=== PATIENT | female | born 1970 | race American Indian/Alaskan Native ===

== ENCOUNTER 2016-08-27 10:30 | Emergency (ER) | payer SELFPAY ==
--- NOTE | 2016-08-27 11:16 | Emergency Department Report ---
HPI - General Chief Complaint: Extremity Problem,Nontraumatic Time Seen by Provider: 08/27/16 10:39 - HPI HPI: This is a 46-year-old Afro-Nigerian female presents to the emergency department from [facility] with complaint of swelling to the left hand and forearm, as well as pain to the left upper arm and left leg. The patient went to [facility] yesterday for the leg pain that she says was "spasms." During that time she admitted to some suicidal ideations and ended up as a 1013 and sent to [facility], but the patient says that did not evaluate her leg pain at that time. She had an IV in her left hand and she says that it infiltrated and since that time she has been having swelling in the hand that worsened this morning and moved to the forearm. She has a history of recent plant dermatitis to her arms. She otherwise has a past medical history of COPD , peripheral vascular disease of the lower extremities and hypertension. She does not currently have a primary care physician. No recent travel or sick contacts at home. She did not take anything and was not given anything for her symptoms prior to presentation. ED Past Medical Hx - Past Medical History Previous Medical History?: Yes Hx Hypertension: Yes Hx Psychiatric Treatment: Yes (Depression) Hx COPD: Yes Additional medical history: emphasema. vascular disease - Surgical History Past Surgical History?: Yes Additional Surgical History: Left great toe partial amputation. - Social History Smoking Status: Current Every Day Smoker Substance Use Type: Alcohol - Medications Home Medications: Home Medications Medication Instructions Recorded Confirmed Last Taken Type Apixaban [Eliquis] 5 mg PO BID #70 tablet 08/27/16 Unknown Rx Multivitamin Tab [Multiple Vitamin 1 each PO QDAY 08/27/16 08/27/16 08/26/16 History TAB (Theragran)] clonazePAM [ Klonopin] 0.5 mg PO BID PRN 08/27/16 08/27/16 08/26/16 History traZODone [Desyrel] 50 mg PO QHS 08/27/16 08/27/16 08/26/16 History ED Review of Systems ROS: Stated complaint: L ARM PAIN/SWELLING Other details as noted in HPI Comment: All other systems reviewed and negative Constitutional: denies: chills, fever Eyes: denies: eye pain, eye discharge, vision change ENT: denies: ear pain, throat pain Respiratory: denies: cough, shortness of breath, wheezing Cardiovascular: edema. denies: chest pain, palpitations Gastrointestinal: denies: abdominal pain, nausea, diarrhea Genitourinary: denies: urgency, dysuria, discharge Musculoskeletal: joint swelling, arthralgia. denies: back pain Skin: denies: change in color, pruritus Neurological: denies: headache, weakness, paresthesias Physical Exam - Physical Exam Vital Signs: Vital Signs 08/27/16 08/27/16 10:40 10:45 Temperature 99 F Pulse Rate 96 H Respiratory 18 18 Rate Blood Pressure 111/78 O2 Sat by Pulse 100 100 Oximetry Physical Exam: GENERAL: The patient is well-developed well-nourished. HEENT: Normocephalic. Atraumatic. Extraocular motions are intact. Patient has moist mucous membranes. Pupils equal reactive to light bilaterally. NECK: Supple. Trachea is midline. CHEST/LUNGS: Clear to auscultation. There is no respiratory distress noted. HEART/CARDIOVASCULAR: Regular. There is no tachycardia. There is no gallop rub or murmur. ABDOMEN: Abdomen is soft, nontender. Patient has normal bowel sounds. There is no abdominal distention. SKIN: There are still the remnants of some plant dermatitis to the bilateral upper extremities. There is nonpitting swelling of the left hand and distal forearm but no erythema or warmth. NEURO: The patient is awake, alert, and oriented. The patient is cooperative. The patient has no focal neurologic deficits. The patient has normal speech. MUSCULOSKELETAL: Unable to reproduce the patient's left leg pain or left upper extremity pain to palpation. No obvious deformity other than some nonpitting swelling of the proximal left upper extremity. Muscle strength 5 out of 5 for upper and lower extremities bilaterally. Radial pulse +2 over 4 bilaterally. Cap refill less than 2 seconds. ED Course Vital Signs 08/27/16 08/27/16 10:40 10:45 Temperature 99 F Pulse Rate 96 H Respiratory 18 18 Rate Blood Pressure 111/78 O2 Sat by Pulse 100 100 Oximetry ED Medical Decision Making - Lab Data Result diagrams: 08/27/16 11:06 08/27/16 11:06 - EKG Data -: EKG Interpreted by Pr EKG shows normal: sinus rhythm, axis, intervals, QRS complexes (LVH), ST-T waves Rate: normal - EKG Data When compared to previous EKG there are: previous EKG unavailable Interpretation: LVH - Radiology Data Radiology results: report reviewed Left lower extremity venous Doppler negative for DVT. Left upper extremity venous Doppler positive for one left brachial vein thrombosis. - Medical Decision Making 46-year-old female presents to the emergency department from [facility] with complaints of left upper and lower extremity discomfort as well as some left hand and forearm swelling. At first, the patient's history may be think that the swelling could be secondary to a infiltrated IV that she had in her left hand yesterday when she visited a different hospital. However with the pain being in the upper arm, away from the swelling, along with pain in the left lower extremity, she had venous Dopplers done of both the left upper and lower extremities. The left upper extremity was positive for 1 brachial vein DVT. The rest of the patient's labs are mostly unremarkable. However the patient has no insurance and is currently headache or hospital. Since I have concern for the possibility of embolism and probability of noncompliance, the patient will be presented to the hospitalist for either admission or consultation. - Differential Diagnosis DVT, Cellulitis, CAD, PVD Critical Care Time: No Critical care attestation.: If time is entered above; I have spent that time in minutes in the direct care of this critically ill patient, excluding procedure time. ED Disposition Clinical Impression: Left arm pain, Left leg pain Deep vein thrombosis (DVT) of brachial vein of left upper extremity Qualifiers: Chronicity: acute Qualified Code(s): I82.622 - Acute embolism and thrombosis of deep veins of left upper extremity Disposition: - OP ADMIT IP TO THIS HOSP Is pt being admited?: Yes Condition: Stable Prescriptions: Apixaban [Eliquis] 5 mg PO BID #70 tablet Referrals: PRIMARY CARE, [Primary Care Provider] - 3-5 Days
[2016-08-27 11:18] LABS: Basophils % (Auto) 0.2 % (0.0-1.8); Eosinophils % (Auto) 0.2 % (0.0-4.3); Hematocrit 37.7 % (30.3-42.9); Hemoglobin 12.4 gm/dl (10.1-14.3); Mean Corpuscular HGB Conc 33 % (30-34); Mean Corpuscular Hemoglobin 31 pg (28-32); Mean Corpuscular Volume 96 fl (79-97); Platelet Count 248 K/mm3 (140-440); Red Blood Count 3.94 M/mm3 (3.65-5.03); Red Cell Distribution Width 14.7 % (13.2-15.2)
[2016-08-27 11:45] LABS: Anion Gap 14 mmol/L; Blood Urea Nitrogen 12 mg/dL (7-17); Calcium 8.9 mg/dL (8.4-10.2); Carbon Dioxide 29 mmol/L (22-30); Chloride 97.9 mmol/L (98-107); Glucose 85 mg/dL (65-100); Potassium 4.2 mmol/L (3.6-5.0); Sodium 137 mmol/L (137-145)
[2016-08-27 11:59] LABS: Creatine Kinase 29 units/L (30-135)
--- NOTE | 2016-08-27 12:16 | Admit Criteria Form ---
Admission Criteria Documentation: DEEP VENOUS THROMBOSIS OF LOWER EXTREMITIES Clinical Indications for Admission to Inpatient Care ( Place 'X' for any and all applicable criteria): Admission is indicated for ANY ONE of the following (1)(2)(3)(4): [ ]I. Documented extensive thrombosis (e.g., clot in vena cava or above iliofemoral bifurcation) [ ]II. Limb-threatening thrombosis (e.g., phlegmasia cerulea dolens) [ ]III. Active bleeding [ ]IV. Recent surgery (e.g., within 6 weeks) [ ]V. Active peptic ulcer disease [ ]. Thrombosis while on anticoagulation [ ]VII. [ X]VIII. Appropriate monitoring and therapy cannot be provided in home or outpatient setting [ ]IX. Thrombolysis (e.g., catheter-directed) or pharmaco mechanical thrombectomy needed (3) [ ]X. Vena cava filter placement planned (3) [ ]XI. Severely diminished cardiopulmonary reserve (e.g., pulmonary hypertension) [ ]XII. Severe renal failure (e.g., GFR less than 30 mL/min/1.73m2 (0.5 mL/sec /1.73m2)) [ ]XIII. Known clotting abnormality or deficiency (antithrombin III, protein C , or protein S) [ ]XIV. History of heparin-induced thrombocytopenia [ ]XV . Personal or family history of bleeding tendency or familial bleeding disorder that requires inpatient admission rather than observation care (Also use Deep Venous Thrombosis of Lower Extremities: Observation Care as appropriate) because of ANY ONE of the following: [ ]a) Significant allergic, autoimmune (thrombocytopenia), or coagulopathic reaction occurs in response to anticoagulation [ ]b) Other significant finding or clinical condition judged not to be within the scope of observation care Extended stay beyond goal length of stay may be needed for(1)(19): [ ]a) Hemorrhage or recent surgery(3) [ ]b) Inadequate oral anticoagulation [ ]c) Recurrent thromboembolism(3) [ ]d) Heparin-induced thrombocytopenia(14) The [facility] content created by [facility] has been revised. The portions of the content which have been revised are identified through the use of italic text or in bold, and [facility] has neither reviewed nor approved the modified material. All other unmodified content is copyright [facility]. Please see references footnoted in the original [facility] edition 2016 Admission Criteria Met: Yes
[2016-08-27 12:23] LABS: INR 0.81 (0.87-1.13)
[2016-08-27 12:24] LABS: Partial Thromboplastin Time 24.1 Sec. (24.2-36.6)
[2016-08-27] MEDS ORDERED: LOVENOX SUB-Q ONE (12:27)
[2016-08-27] MEDS ORDERED: ELIQUIS PO SCH (13:00)
--- NOTE | 2016-08-27 13:49 | History and Physical Report ---
History of Present Illness Chief complaint: My arm is swollen, History of present illness: 46 YO Female with HTN, Nicotine Dependence, Depression, COPD, Emphysema, PVD presents to ED for evaluation. Pt states that she has experienced swelling to the left hand and forearm, as well as pain to the left upper arm and left leg over the past 3 weeks, with worsening symptoms over the past 2 days. The patient went to [facility] yesterday for the leg pain that she says was "spasms." During that time she admitted to suicidal ideations and was made a code a 1013 and sent to [facility]. Pt seen and evaluated in ED. Pt denies fever, chills, CP, palpitations, NVD, Syncope, BRBPR, recent ill contacts. Past History Past Medical History: COPD, hypertension Past Surgical History: No surgical history, Other (reviewed) Social history: single, smoking. denies: alcohol abuse, prescription drug abuse , IV drug use Family history: hypertension Medications and Allergies Allergies Allergy/AdvReac Type Severity Reaction Status Date / Time lisinopril Allergy Angioedema Verified 08/27/16 10:40 Home Medications Medication Instructions Recorded Confirmed Last Taken Type Apixaban [Eliquis] 5 mg PO BID #70 tablet 08/27/16 Unknown Rx Multivitamin Tab [Multiple Vitamin 1 each PO QDAY 08/27/16 08/27/16 08/26/16 History TAB (Theragran)] clonazePAM [ Klonopin] 0.5 mg PO BID PRN 08/27/16 08/27/16 08/26/16 History traZODone [Desyrel] 50 mg PO QHS 08/27/16 08/27/16 08/26/16 History Active Meds: Active Medications Apixaban (Eliquis) 10 mg PO Q12HR KELLEY PRN Reason: Protocol Review of Systems All systems: negative Constitutional: other (My arm hurts) Exam - Constitutional Vitals: Temp Pulse Resp BP Pulse Ox 99 F 96 H 18 111/78 100 08/27/16 10:40 08/27/16 10:40 08/27/16 10:45 08/27/16 10:40 08/27/16 10:45 General appearance: Present: no acute distress, well-nourished - EENT Eyes: Present: PERRL ENT: hearing intact, clear oral mucosa - Neck Neck: Present: supple, normal ROM - Respiratory Respiratory effort: normal Respiratory: bilateral: CTA - Cardiovascular Heart Sounds: Present: S1 & S2. Absent: rub, click - Extremities Extremities: pulses symmetrical, No edema Peripheral Pulses: within normal limits - Abdominal General gastrointestinal: Present: soft, non-tender, non-distended, normal bowel sounds Female genitourinary: Present: normal - Integumentary Integumentary: Present: clear, warm, dry - Musculoskeletal Musculoskeletal: gait normal, strength equal bilaterally - Psychiatric Psychiatric: appropriate mood/affect, intact judgment & insight - Neurologic Neurologic: CNII-XII intact, moves all extremities Results - Labs CBC & Chem 7: 08/27/16 11:06 08/27/16 11:06 Labs: Abnormal lab results 08/27/16 08/27/16 08/27/16 Range/Units 11:06 11:06 11:06 Lymph % (Auto) 9.5 L (13.4-35.0) % Lymph # 0.7 L (1.2-5.4) K/mm3 Seg Neutrophils % 84.7 H (40.0-70.0) % PT (12.2-14.9) Sec. INR (0.87-1.13) APTT (24.2-36.6) Sec. Chloride 97.9 L (98-107) mmol/L Creatinine 0.6 L (0.7-1.2) mg/dL Total Creatine Kinase 29 L (30-135) units/L 08/27/16 Range/Units 12:00 Lymph % (Auto) (13.4-35.0) % Lymph # (1.2-5.4) K/mm3 Seg Neutrophils % (40.0-70.0) % PT 11.6 L (12.2-14.9) Sec. INR 0.81 L (0.87-1.13) APTT 24.1 L (24.2-36.6) Sec. Chloride (98-107) mmol/L Creatinine (0.7-1.2) mg/dL Total Creatine Kinase (30-135) units/L Assessment and Plan - Patient Problems (1) Deep vein thrombosis (DVT) of brachial vein of right upper extremity Current Visit: Yes Status: Acute Qualifiers: Chronicity: C Plan to address problem: Pt treated with Eliquis in ED, Pt discharged to [place] with eliquis therapy. Pt given coupan in ED. (2) HTN (hypertension) Current Visit: Yes Status: Acute Qualifiers: Hypertension type: H Plan to address problem: Monitor BP q shift, resume home medication. (3) Depression Current Visit: Yes Status: Acute Qualifiers: Depression Type: D Major depression recurrence: M Active/Remission status : A Major depression episode severity: M Psychotic features: P Trimester: T Plan to address problem: psych consulted, (4) Suicidal ideations Current Visit: Yes Status: Acute Plan to address problem: Psych consulted, (5) DVT prophylaxis Current Visit: Yes Status: Acute
[2016-08-27 14:17] VITALS: BP 123/79
--- NOTE | 2016-08-28 07:19 | Vascular Lab Report ---
Left Lower Extremity Venous Duplex Study: Reason for Exam: Pain of the left lower extremity. Comments on the Right: A limited duplex study was done of the proximal veins of the right lower extremity. All veins visualized are freely compressible without evidence of internal echogenicity. Flow is spontaneous and phasic throughout. No evidence of acute or chronic thrombus is seen in any of the vessels visualized. Comments on the Left: All veins visualized are freely compressible without evidence of internal echogenicity. Flow is spontaneous and phasic throughout. No evidence of acute or chronic thrombus is seen in any of the vessels visualized. Impression: No evidence of acute or chronic deep venous thrombosis in the left lower extremity.
--- NOTE | 2016-08-28 07:20 | Vascular Lab Report ---
LEFT UPPER EXTREMITY VENOUS DUPLEX: REASON FOR EXAM: Pain and swelling of the left upper extremity COMMENTS ON THE LEFT: Deep venous thrombus noted in the brachial vein. The remaining veins visualized are freely compressible without evidence of internal echogenicity. Spontaneous and phasic flow is present proximally. COMMENTS ON THE RIGHT: The subclavian and internal jugular veins are free of thrombus. IMPRESSION: Deep venous thrombosis in the left upper extremity
== END 2016-08-27 16:49 | disposition admitted as inpatient to this hospital (09) ==
LOC: ED 10:30
DX: I82.622 Acute embolism and thrombosis of deep veins of left upper extremity (principal); M79.605 Pain in left leg; I10 Essential (primary) hypertension; F32.9 Major depressive disorder, single episode, unspecified; J44.9 Chronic obstructive pulmonary disease, unspecified; F17.200 Nicotine dependence, unspecified, uncomplicated; J43.9 Emphysema, unspecified; Z88.8 Allergy status to other drugs, medicaments and biological substances
CPT/HCPCS: 36415; 80048; 82550; 84484; 85025; 85610; 85730; 93005; 93010

== ENCOUNTER 2016-08-28 22:07 | Inpatient (IN) | payer SELFPAY ==
[2016-08-28] MEDS ORDERED: NORCO 5/325 PO ONE (23:33)
--- NOTE | 2016-08-28 23:33 | Emergency Department Report ---
HPI - General Chief Complaint: Extremity Injury, Upper Time Seen by Provider: 08/28/16 23:15 - HPI HPI: Room 25 The patient is a 46-year-old female presenting with a chief complaint left upper extremity pain and swelling. Patient states her symptoms began 4 days ago after receiving an IV in her left upper extremity. Patient states she developed swelling of the left hand. Patient states the swelling has increased and worsened prompting her to come to the ED yesterday. Yesterday the patient had a left upper extremity venous duplex which revealed deep venous thrombus noted in the radial vein. The remaining veins visualized freely compressible without evidence of internal echogenicity. The patient was initially admitted to the hospital yesterday for DVT but seen by the hospitalist and discharged on Eliquis. The patient is currently at [facility] under 1013 for suicidal ideation. The patient came back to the ED today because she has persistent pain and swelling in the left upper extremity Location: Left upper extremity Duration: 4 days Quality: Pain Severity: Moderate Modifying factors: [see above] Context: [see above] Mode of transportation: [not driving] ED Past Medical Hx - Past Medical History Hx Hypertension: Yes Hx Psychiatric Treatment: Yes (Depression) Hx COPD: Yes Additional medical history: emphasema. vascular disease - Surgical History Additional Surgical History: Left great toe partial amputation. - Family History Family history: no significant - Social History Smoking Status: Current Every Day Smoker (one to 2 cigarettes daily) Substance Use Type: None (denies illicit drug use), Alcohol (moderate) - Medications Home Medications: Home Medications Medication Instructions Recorded Confirmed Last Taken Type Apixaban [Eliquis] 5 mg PO BID #70 tablet 08/27/16 Unknown Rx Hydrocortisone 0.5% 1 applicatio TP TID #1 tube 08/27/16 Unknown Rx [Hydrocortisone 0.5% CREAM] Multivitamin Tab [Multiple Vitamin 1 each PO QDAY 08/27/16 08/27/16 08/26/16 History TAB (Theragran)] clonazePAM [ Klonopin] 0.5 mg PO BID PRN 08/27/16 08/27/16 08/26/16 History traZODone [Desyrel] 50 mg PO QHS 08/27/16 08/27/16 08/26/16 History ED Review of Systems ROS: Stated complaint: POSS DVT/ Other details as noted in HPI Comment: All other systems reviewed and negative Constitutional: denies: chills, fever Physical Exam - Physical Exam Vital Signs: Vital Signs 08/28/16 22:24 Temperature 98.1 F Pulse Rate 73 Blood Pressure 142/91 O2 Sat by Pulse 100 Oximetry ED Course Vital Signs 08/28/16 22:24 Temperature 98.1 F Pulse Rate 73 Blood Pressure 142/91 O2 Sat by Pulse 100 Oximetry ED Medical Decision Making - Lab Data Result diagrams: 08/28/16 23:32 08/28/16 23:32 Laboratory Tests 08/28/16 08/28/16 08/28/16 23:32 23:32 23:32 WBC 5.7 RBC 3.47 L Hgb 11.1 Hct 34.1 MCV 98 H MCH 32 MCHC 33 RDW 15.1 Plt Count 231 Lymph % (Auto) 21.6 Carver % (Auto) 8.0 H Eos % (Auto) 1.0 Baso % (Auto) 0.3 Lymph # 1.2 Carver # 0.5 Eos # 0.1 Baso # 0.0 Seg Neutrophils % 69.1 Seg Neutrophils # 3.9 PT 12.1 L INR 0.86 L APTT 27.3 Sodium 135 L Potassium 3.7 Chloride 100.8 Carbon Dioxide 28 Anion Gap 10 BUN 16 Creatinine 0.4 L Estimated GFR > 60 BUN/Creatinine Ratio 40.00 Glucose 94 Calcium 8.7 - Differential Diagnosis dvt Critical care attestation.: If time is entered above; I have spent that time in minutes in the direct care of this critically ill patient, excluding procedure time. ED Disposition Clinical Impression: Deep vein thrombosis (DVT) of brachial vein of left upper extremity Disposition: OP ADMIT IP TO THIS HOSP Is pt being admited?: Yes Does the pt Need Aspirin: Yes Condition: Fair Referrals: PRIMARY CARE, [Primary Care Provider] - 3-5 Days Time of Disposition: 00:22 (hospitalist paged)
[2016-08-28 23:47] LABS: Basophils % (Auto) 0.3 % (0.0-1.8); Hematocrit 34.1 % (30.3-42.9); Hemoglobin 11.1 gm/dl (10.1-14.3); Mean Corpuscular HGB Conc 33 % (30-34); Mean Corpuscular Hemoglobin 32 pg (28-32); Mean Corpuscular Volume 98 fl (79-97); Platelet Count 231 K/mm3 (140-440); Red Blood Count 3.47 M/mm3 (3.65-5.03); Red Cell Distribution Width 15.1 % (13.2-15.2); White Blood Count 5.7 K/mm3 (4.5-11.0)
[2016-08-28 23:56] LABS: INR 0.86 (0.87-1.13)
[2016-08-28 23:57] LABS: Partial Thromboplastin Time 27.3 Sec. (24.2-36.6)
[2016-08-29 00:04] LABS: Anion Gap 10 mmol/L; Blood Urea Nitrogen 16 mg/dL (7-17); Calcium 8.7 mg/dL (8.4-10.2); Carbon Dioxide 28 mmol/L (22-30); Chloride 100.8 mmol/L (98-107); Glucose 94 mg/dL (65-100); Potassium 3.7 mmol/L (3.6-5.0); Sodium 135 mmol/L (137-145)
[2016-08-29] MEDS ORDERED: ZOFRAN IV PRN (02:16)
[2016-08-29] MEDS ORDERED: MILK OF MAGNESIA PO PRN (02:16)
[2016-08-29] MEDS ORDERED: DULCOLAX PR PRN (02:16)
[2016-08-29] MEDS ORDERED: TYLENOL PO PRN (02:16)
--- NOTE | 2016-08-29 02:29 | History and Physical Report ---
History of Present Illness Date of examination: 08/29/16 History of present illness: 46 -year-old woman with a history of hypertension, depression, COPD, currently at [facility] for suicide ideation comes emergency room with complaint of left upper extremity pain. She was seen here in the emergency room 2 days ago and was diagnosed with DVT and was placed on Eliquis and discharged back to [place]. She state that her swelling of the left upper extremity has progressed and at time it waxes and wanes. She has increased pain. Also complaining of cramps in the lower extremity, at the Doppler of the lower extremity was done and this was negative Patient denies chest pain, palpitation, shortness of breath, cough, abdominal pain, hematochezia, dysuria, frequency, focal weakness, dysarthria, fever chills , polydipsia polyuria, hot or cold intolerance, easy bruisability, or rash or bleeding from mucosal membrane, rhinorrhea, epistaxis, earache, tinnitus, blurry vision, eye discharge, anxiety, depression. Other review of systems negative PAST SURGICAL HISTORY:None SOCIAL HISTORY: Drink 2 beers a day, smokes 3 cigarettes a day, no drugs FAMILY HISTORY:Hypertension Medications and Allergies Allergies Allergy/AdvReac Type Severity Reaction Status Date / Time lisinopril Allergy Angioedema Verified 08/27/16 10:40 Home Medications Medication Instructions Recorded Confirmed Last Taken Type Apixaban [Eliquis] 5 mg PO BID #70 tablet 08/27/16 08/29/16 Unknown Rx Hydrocortisone 0.5% 1 applicatio TP TID #1 tube 08/27/16 08/29/16 Unknown Rx [Hydrocortisone 0.5% CREAM] Multivitamin Tab [Multiple Vitamin 1 each PO QDAY 08/27/16 08/29/16 08/26/16 History TAB (Theragran)] clonazePAM [ Klonopin] 0.5 mg PO BID PRN 08/27/16 08/29/16 08/26/16 History traZODone [Desyrel] 50 mg PO QHS 08/27/16 08/29/16 08/26/16 History Amitriptyline [Elavil] 37.5 mg PO QHS 08/29/16 08/29/16 Unknown History Metoprolol [Lopressor] 12.5 mg PO BID 08/29/16 08/29/16 Unknown History Sertraline [Zoloft] 50 mg PO QDAY 08/29/16 08/29/16 Unknown History Thiamine [Vitamin B-1] 100 mg PO QDAY 08/29/16 08/29/16 Unknown History Active Meds: Active Medications Acetaminophen (Tylenol) 650 mg PO Q4H PRN PRN Reason: Pain MILD(1-3)/Fever >100.5/MCMAHAN Amitriptyline HCl (Elavil) 37.5 mg PO QHS KELLEY Apixaban (Eliquis) 5 mg PO BID KELLEY PRN Reason: Protocol Bisacodyl (Dulcolax) 10 mg [place] QDAY PRN PRN Reason: Constipation unrelieved by MOM Clonazepam (Klonopin) 0.5 mg PO BID PRN PRN Reason: Anxiety Hydrocortisone Acetate (Hydrocortisone Cr) 1 applic TP TID KELLEY Magnesium Hydroxide (Milk Of Magnesia) 30 ml PO Q4H PRN PRN Reason: Constipation Metoprolol Tartrate (Lopressor) 12.5 mg PO BID [facility] Ondansetron HCl (Zofran) 4 mg IV Q8H PRN PRN Reason: N/V unrelieved by Reglan Oxycodone/Acetaminophen (Percocet 5/325) 1 tab PO Q6H PRN PRN Reason: Pain, Moderate (4-6) Sertraline HCl (Zoloft) 50 mg PO QDAY [facility] Thiamine HCl (Vitamin B-1) 100 mg PO QDAY [facility] Exam - Physical Exam Narrative exam: Gen. appearance: Patient lying in bed, no apparent distress HEENT: Normocephalic, atraumatic, pupils equally round and reactive to light, extraocular movement intact, and no sclericterus,. No JVD or thyromegaly or nodule,neck supple, no carotid bruit ,mucous membranes moist, no exudate or erythema Heart: S1, S2, regular rate and rhythm Lungs: Clear to auscultation bilaterally, breathing comfortable Abdomen: Positive bowel sounds, nontender, nondistended, no organomegaly Extremity:LUE swelling No LE edema, cyanosis, clubbing Skin: No rash, nodules, warm, dry Neuro: Oriented 3, cranial nerves II-12 intact, speech is fluent, motor and sensory intact - Constitutional Vitals: Temp Pulse Resp BP Pulse Ox 98.1 F 73 142/91 100 08/28/16 22:24 08/28/16 22:24 08/28/16 22:24 08/28/16 22:24 Results - Labs CBC & Chem 7: 08/28/16 23:32 08/28/16 23:32 Labs: Abnormal lab results 08/28/16 08/28/16 08/28/16 Range/Units 23:32 23:32 23:32 RBC 3.47 L (3.65-5.03) M/mm3 MCV 98 H (79-97) fl Roberts % (Auto) 8.0 H (0.0-7.3) % PT 12.1 L (12.2-14.9) Sec. INR 0.86 L (0.87-1.13) Sodium 135 L (137-145) mmol/L Creatinine 0.4 L (0.7-1.2) mg/dL - Imaging and Cardiology EKG: image reviewed Assessment and Plan Worsening swelling and pain of the left upper extremity DVT of the left lower extremity Suicide ideation Hypertension COPD, stable Depression Admits medicine Continue eliquis, consult vascular Continue appropriate outpatient medication, start Percocet Patient 1013, place with a sitter Dvt prophylaxis initiated
--- NOTE | 2016-08-29 10:16 | Event Note ---
Date: 08/29/16 46-year-old female admitted from [place] this morning for the c/o of increased pain and swelling of the left upper extremity, patient was diagnosed recently with DVT of the left upper extremity and was placed on Eliquis. Vital signs are stable. Labs are unremarkable. Patient has mild tenderness of the left upper extremity. Vascular surgery consult is placed. Will do arterial Doppler of the LUE.
[2016-08-29] MEDS: VITAMIN B-1 PO SCH (10:30)
[2016-08-29] MEDS: ELIQUIS PO SCH ×2 (10:30→21:00)
[2016-08-29] MEDS: LOPRESSOR PO SCH ×2 (10:30→21:00)
[2016-08-29] MEDS: PERCOCET 5/325 PO PRN (10:31)
[2016-08-29] MEDS: ZOLOFT PO SCH (10:31)
[2016-08-29] MEDS: HYDROCORTISONE CR TP SCH ×3 (10:56→21:00)
[2016-08-29] MEDS ORDERED: ELAVIL PO SCH (22:00)
[2016-08-30 07:23] LABS: Basophils % (Auto) 0.6 % (0.0-1.8); Eosinophils % (Auto) 1.7 % (0.0-4.3); Hematocrit 35.7 % (30.3-42.9); Hemoglobin 11.7 gm/dl (10.1-14.3); Mean Corpuscular HGB Conc 33 % (30-34); Mean Corpuscular Hemoglobin 32 pg (28-32); Mean Corpuscular Volume 97 fl (79-97); Platelet Count 235 K/mm3 (140-440); Red Blood Count 3.69 M/mm3 (3.65-5.03); Red Cell Distribution Width 15.1 % (13.2-15.2); White Blood Count 4.7 K/mm3 (4.5-11.0)
[2016-08-30 07:41] LABS: Anion Gap 16 mmol/L; Blood Urea Nitrogen 13 mg/dL (7-17); Calcium 8.9 mg/dL (8.4-10.2); Carbon Dioxide 28 mmol/L (22-30); Glucose 93 mg/dL (65-100); Potassium 4.5 mmol/L (3.6-5.0); Sodium 140 mmol/L (137-145)
[2016-08-30] MEDS: PERCOCET 5/325 PO PRN (08:09)
[2016-08-30] MEDS: LOPRESSOR PO SCH (09:52)
[2016-08-30] MEDS: VITAMIN B-1 PO SCH (09:52)
[2016-08-30] MEDS: ELIQUIS PO SCH (09:53)
[2016-08-30] MEDS: ZOLOFT PO SCH (09:55)
[2016-08-30] MEDS: HYDROCORTISONE CR TP SCH (10:34)
--- NOTE | 2016-08-30 12:40 | Vascular Lab Report ---
LEFT UPPER EXTREMITY ARTERIAL DUPLEX: REASON FOR EXAM: Peripheral arterial disease. COMMENTS ON THE LEFT: Triphasic waveforms are seen proximally. Triphasic waveforms are seen distally. No significant velocity gradients are identified. No significant plaque is identified. Findings are consistent with normal perfusion. IMPRESSION: LEFT:Essentially normal arterial flow.
--- NOTE | 2016-08-30 13:17 | Discharge Summary ---
Providers - Providers Date of Admission: 08/29/16 02:16 Date of discharge: 08/30/16 Attending physician: CELSO SARMIENTO MD 08/30/16 08:44 Consult to Physician [CONS] Routine Consulting Provider: MELIDA SANFORD Reason For Exam: swelling and pain to the LUE Place consult to:: Dr. Sanford Notified:: Leann Phone number called:: [phone] 08/30/16 12:08 Consult to Mental Health [CONS] Urgent Reason For Exam: Mental Health Eval. Place consult to:: Mental Health Notified:: Jay Was contact made?: Yes Primary care physician: [employer] Hospitalization Condition: Good Hospital course: Patient 46-year-old presented with left arm pain. Patient insisted she had had previous left upper extremity DVT and swelling. Patient was admitted for follow -up and evaluation of left-sided swelling. Patient had Doppler ultrasound that did not show any evidence of clotting at this time. Physical exam findings were very limited as far as swelling. No swelling identified no edema identified we will palpation. Patient previously may have had a DVT and is on Xarelto therefore I will continue Xarelto at this time and follow-up as outpatient. Patient stable to be transferred back to [facility]. Disposition: [id number] PSY HOSP/PSY UNIT - Discharge Diagnoses (1) Deep vein thrombosis (DVT) of brachial vein of left upper extremity Status: Acute Qualifiers: Chronicity: C Comment: No evidence of DVT on physical exam we'll continue treatment with Xarelto for 3 months. Follow-up with another ultrasound at that time. The patient stable to be discharged back to [facility]. (2) Depression Status: Acute Qualifiers: Depression Type: D Major depression recurrence: M Active/Remission status : A Major depression episode severity: M Psychotic features: P Trimester: T (3) HTN (hypertension) Status: Acute Qualifiers: Hypertension type: essential hypertension Qualified Code(s): I10 - Essential (primary) hypertension (4) Left arm pain Status: Acute Comment: Again didn't to what appeared to be previous DVT can discharge. Core Measure Documentation - Palliative Care Palliative Care/ Comfort Measures: Not Applicable - Core Measures Any of the following diagnoses?: DVT/PE - VTE Discharge Requirements Deep Vein Thrombosis/Pulmonary Embolism Present on Admission: Yes Has pt received <5 days of overlap therapy or INR<2.0: Yes (patient did not leave overlap. Is on Xarelto and will continue Xarelto and) Anticoagulant overlap therapy prescribed at discharge: Yes Exam - Constitutional Vitals: Temp Pulse Resp BP Pulse Ox 97.9 F 70 20 165/95 100 08/30/16 07:00 08/30/16 07:00 08/30/16 07:00 08/30/16 09:52 08/30/16 07:00 General appearance: Present: no acute distress, well-nourished - EENT Eyes: Present: PERRL ENT: hearing intact, clear oral mucosa - Neck Neck: Present: supple, normal ROM - Respiratory Respiratory effort: normal Respiratory: bilateral: CTA - Cardiovascular Heart Sounds: Present: S1 & S2. Absent: rub, click - Extremities Extremities: pulses symmetrical, No edema Peripheral Pulses: within normal limits - Abdominal General gastrointestinal: Present: soft, non-tender, non-distended, normal bowel sounds Female genitourinary: Present: normal - Integumentary Integumentary: Present: clear, warm, dry - Musculoskeletal Musculoskeletal: gait normal, strength equal bilaterally - Psychiatric Psychiatric: appropriate mood/affect, intact judgment & insight - Neurologic Neurologic: CNII-XII intact, moves all extremities Plan Activity: no restrictions Weight Bearing Status: Full Weight Bearing Diet: regular Follow up with: PRIMARY CARE, [Primary Care Provider] - 3-5 Days Prescriptions: Amitriptyline [Elavil] 37.5 mg PO QHS #30 tablet Apixaban [Eliquis] 5 mg PO BID #60 tablet clonazePAM [KlonoPIN] 0.5 mg PO BID PRN #30 tablet PRN Reason: Anxiety Metoprolol [Lopressor TAB] 12.5 mg PO BID #30 tablet oxyCODONE /ACETAMINOPHEN [Percocet 5/325 mg] 1 tab PO Q6H PRN #20 tablet PRN Reason: Pain, Moderate (4-6) Sertraline [Zoloft] 50 mg PO QDAY #30 tablet traZODone [Desyrel] 50 mg PO QHS #30 tablet
[2016-08-30 16:27] VITALS: BP 185/112
--- NOTE | 2016-09-02 09:04 | Consultation ---
History of Present Illness - Reason for Consult Consult date: 08/30/16 Left arm pain and swelling - History of Present Illness Patient with history of right arm dvt, recent diagnosis of left brachial vein dvt presents to ER with increased pain and swelling in the left arm. Pt had not been using any compression or elevation. She continues to take anticoagulation daily and denies any noncompliance. At the time of my exam, she had been elevating the arm with dramatic decrease in swelling and pain. Denies any chest pain, sob. Past History Past Medical History: DVT Medications and Allergies Allergies Allergy/AdvReac Type Severity Reaction Status Date / Time lisinopril Allergy Angioedema Verified 08/27/16 10:40 Home Medications Medication Instructions Recorded Confirmed Last Taken Type Hydrocortisone 0.5% 1 applicatio TP TID #1 tube 08/27/16 08/29/16 Unknown Rx [Hydrocortisone 0.5% CREAM] Multivitamin Tab [Multiple Vitamin 1 each PO QDAY 08/27/16 08/29/16 08/26/16 History TAB (Theragran)] Sertraline [Zoloft] 50 mg PO QDAY 08/29/16 08/29/16 Unknown History Thiamine [Vitamin B-1] 100 mg PO QDAY 08/29/16 08/29/16 Unknown History Amitriptyline [Elavil] 37.5 mg PO QHS #30 tablet 08/30/16 Unknown Rx Apixaban [Eliquis] 5 mg PO BID #60 tablet 08/30/16 Unknown Rx Metoprolol [Lopressor TAB] 12.5 mg PO BID #30 tablet 08/30/16 Unknown Rx Sertraline [Zoloft] 50 mg PO QDAY #30 tablet 08/30/16 Unknown Rx Thiamine [Vitamin B-1] 100 mg PO QDAY tablet 08/30/16 Unknown Rx clonazePAM [KlonoPIN] 0.5 mg PO BID PRN #30 tablet 08/30/16 Unknown Rx oxyCODONE /ACETAMINOPHEN [Percocet 1 tab PO Q6H PRN #20 tablet 08/30/16 Unknown Rx 5/325 mg] traZODone [Desyrel] 50 mg PO QHS #30 tablet 08/30/16 Unknown Rx Review of Systems Constitutional: no fever, no weakness Ears, nose, mouth and throat: no dysphagia, no voice changes Breasts: deferred Cardiovascular: no chest pain, no edema Respiratory: no wheezing Gastrointestinal: no abdominal pain Musculoskeletal: shooting arm pain Integumentary: no rash Neurological: no paralysis Psychiatric: no anxiety Endocrine: no palpatations Hematologic/Lymphatic: no easy bleeding Allergic/Immunologic: no wheezing Exam - Constitutional Vitals: Temp Pulse Resp BP Pulse Ox 98.5 F 75 20 185/112 100 08/30/16 16:00 08/30/16 16:00 08/30/16 16:00 08/30/16 16:00 08/30/16 07:00 General appearance: Present: no acute distress - EENT Eyes: Present: EOM intact - Neck Neck: Present: normal ROM - Respiratory Respiratory effort: normal - Cardiovascular Rhythm: regular - Extremities Extremities: pulses intact, Full ROM Extremity abnormal: other (no arm edema bilaterally) Peripheral Pulses: within normal limits - Abdominal General gastrointestinal: Present: soft - Integumentary Integumentary: Present: clear, warm, dry - Musculoskeletal Musculoskeletal: strength equal bilaterally - Psychiatric Psychiatric: appropriate mood/affect - Neurologic Neurologic: moves all extremities Results - Labs CBC & Chem 7: 08/30/16 07:10 08/30/16 07:10 - Imaging and Cardiology Venous US: report reviewed Assessment and Plan Left brachial DVT with arm swelling and pain, resolving: Symptoms nearly resolved with elevation. I discussed with patient continue compression with dustin wrap and elevation to help symptoms. Symptoms are expected with acute arm dvt. Continue anticoagulation as prescribed. All questions answered.
== END 2016-08-30 16:55 | DRG 300 ==
LOC: ED 22:07 → 3A 08-29 02:16
PROVIDERS: ADMIT Internal Medicine; ATTEND Internal Medicine
DX: I82.622 Acute embolism and thrombosis of deep veins of left upper extremity (principal); R45.851 Suicidal ideations; M79.602 Pain in left arm; J44.9 Chronic obstructive pulmonary disease, unspecified; F32.9 Major depressive disorder, single episode, unspecified; I10 Essential (primary) hypertension; F17.210 Nicotine dependence, cigarettes, uncomplicated; Z89.412 Acquired absence of left great toe; Z88.8 Allergy status to other drugs, medicaments and biological substances; Z72.89 Other problems related to lifestyle; Z82.49 Family history of ischemic heart disease and other diseases of the circulatory system
CPT/HCPCS: 36415; 80048; 85025; 85610; 85730; A6250